=== PATIENT | female | born 1995 | race Caucasian/White ===

== ENCOUNTER → 2018-08-01 | Outpatient (REF) | payer BC | LOC: M LAB LCGH 13:20 | PROVIDERS: ATTEND Nurse Practitioner Adult Health | DX: Z12.4 Encounter for screening for malignant neoplasm of cervix (principal) ==

== ENCOUNTER 2020-07-22 10:30 | Inpatient (IN) | payer BC, OTHER ==
[~2020-07-22] VITALS: Ht 170.2 cm; Wt 82.7 kg
[2020-07-22] VITALS (25 sets, daily range): BP systolic 101–132; BP diastolic 56–79
[2020-07-22] MEDS ORDERED: PRENTAB9 PO (10:48)
[2020-07-22 12:21] LABS: HEMATOCRIT 35.6 % (36.0-47.0); HEMOGLOBIN 11.8 g/dl (12.0-15.5); MEAN CORPUSCULAR HEMOGLOBIN 30.4 pg (27.0-33.0); MEAN CORPUSCULAR HGB CONC 33.1 g/dl (32.0-36.5); MEAN CORPUSCULAR VOLUME 91.8 fl (80.0-96.0); PLATELET COUNT, AUTOMATED 170 10^3/uL (150-450); RED BLOOD COUNT 3.88 10^6/uL (4.00-5.40)
--- NOTE | 2020-07-22 13:49 | HPEPDOC ---
Obstetrical History & Physical General Date of Admission Jul 22, 2020 at 10:30 History of Present Illness 25yo at 34+0wks presented to [facility] for PPROM of clear fluid at 0650 this AM. She has a cerclage in place due to ultrasound- indicated cerclage placement on anatomy scan. She reports spouse is currently deployed to [facility] so she relocated from [place], [place] to [facility] to be with family for support a month ago establishing care with [facility] provider. Upon PPROM, patient required transfer to [facility] for NICU care. She denies VB, DFM, or regular ctx's. Chief Complaint: LOF, pre-term Information Provided By: Patient Care Care: Good Care Dating Final EDC: Sep 02, 2020 Final EDC for Daily Update: Sep 02, 2020 EGA at Admission: 34 Antepartum Course Diagnos(e)s Cervical incompetence - cerclage placed on Asthma complicating Varicella equivocal Carrier of Lenin Caballero Height (inches): 67 Pre- weight (lbs.): 146 Admission Weight (lbs.): 182 Change in Weight (lbs.): 36 Past Medical History Past Obstetrical History : Past Obstetrical History: Multigravida LAUNDRY SORTER History: Spontaneous Past Medical History Medical History Asthma Varicella NI Surgical History: Other (Cerclage placement ) Family History Significant Family History: No pertinent family hx Social History Marital Status: Family situation: Spouse/partner deployed Psychosocial History: No pertinent psych hx * Smoker: non-smoker Alcohol: Denies Drugs: denies Abuse Violence Screening Have you been hit/kicked/slapp: No Have you been sexually assault: No Allergies Coded Allergies: peach (Verified Allergy, Severe, ANAPHYLAXIS, 07/22/20) Medications Scheduled No.137/Iron/Folic Acd ( Vitamin Tablet) 1 Each Tablet, 1 TAB PO DAILY Physical Examination Physical Examination GENERAL: Alert and oriented times three. ABDOMEN: Gravid and non-tender to touch. FETUS: Is vertex (VTX) by sterile vaginal examination (SVE), fetus is vertex (VTX) by Sumit and TAUS CARDS: well-perfused LUNGS: no exaggerated respiratory effort appreciated : NEFG, +pooling, cerclage in place, cerclage removed per patient request with SVE /-3 EXTREMITIES: No edema. TAUS: cephalic presentation, anterior placenta Laboratory Data 24H LABS Laboratory Tests 2 07/22/20 11:59: Nucleated Red Blood Cells % (auto) 0.0 CBC/BMP Laboratory Tests 07/22/20 11:59 Pertinent Laboratoy Data Blood Type: B+ RBC Antibody Screen: Negative HIV: Negative Hepatitis B: Negative Rapid Plasma Reagin: Nonreactive Rubella: Immune Varicella: Nonreactive Chlamydia/Gonorrhea: Negative Group B Streptococcus: Positive Glucose Tolerance Test: 99 Anatomy Ultrasound Placenta Location: Anterior Normal Anatomy: Yes Vaginal Examination Dilation: 1cm Effacement: 50% Station: -3 Cervical Consistency: Soft Cervical Position: Posterior Presentation: Cephalic presentation Assessment Heart Rate (FHR): 140 Variability: Moderate Accelerations: Positive Decelerations: None Tocometer Contractions: No Multi-drug resistant Organism: No history of MDRO Assessment/Plan Assessment Danya is a 25yo at 34+0wks presenting as transfer of care for NICU status after PPROM. GBS positive. Normotensive, afebrile, NST reactive. Patient had already received BTMZ on 07/15 and 07/16 for concern of spotting VB last week. Plan Admit and orient. Jazz Musician and consent. Diet: regular as tolerated Group B Streptococcus (GBS) positive Labs and intravenous (IV) per unit protocol. Counseled on pitocin, cytotec, and guerra bulb for induction of labor (IOL). Lactated Ringers (LR): Bolus 1000 mL, then at 125 mL/hr. Anticipate . C-S as appropriate. Labor and Delivery Counseling Patient was counseled on mgmt options of expectant until 36wks with latency antibiotics vs IOL now that she is 34wks. We discussed r/b/a/i of expectant vs IOL. Patient elected for cerclage removal and to proceed with IOL today. Patient counseled on the r/b/a/i of vaginal delivery with possible need for blood products, she acknowledged understanding. We also discussed requiring NICU care for prematurity, plan for NICU consult. JEREMY OCHOA DO Jul 22, 2020 13:49
--- NOTE | 2020-07-22 14:05 | IPNPDOC ---
Text Note Date of Service The patient was seen on 07/22/20. NOTE Patient was allowed to eat after cerclage removal. Patient counseled that there is small amount of scarring from the cerclage. Discussed IOL options to include cytotec, guerra balloon, and pitocin. Discussed that I recommend guerra balloon with low dose pitocin for cervical ripening while attempting to break up scar tissue. Patient amenable to this plan. Guerra balloon placed without difficulty with 60ml intrauterine bulb and tension applied by taping to inner thigh. Will start low dose pitocin protocol and PCN for GBS ppx at this time. Patient declines need for pain medication at this time. FHRT cat I. Patient desires to proceed, safe to continue. All questions answered. VS,Darcy, I+O VS, Darcy, I+O Laboratory Tests 07/22/20 11:59 JEREMY OCHOA DO Jul 22, 2020 14:05
[2020-07-22] MEDS ORDERED: PROMETHAZINE INJ 25 MG/ML VIAL (J2550) IV PRN (16:30)
[2020-07-23] VITALS (62 sets, daily range): BP systolic 81–223; BP diastolic 49–90
[2020-07-23] MEDS: BUTORPHANOL 2 MG/ML INJ (J0595) IV PRN ×2 (00:29→04:50)
--- NOTE | 2020-07-23 01:03 | IPNPDOC ---
Text Note Date of Service The patient was seen on 07/23/20. NOTE Presented to room for assessment of progress. Danya reports increased pain and desires IV medication. Chaperoned by RN Curiel bulb removed with gentle traction. Cervix: /-2. FHR Cat I. Pitocin at 6mU. Will now increase per protocol. Stadol and phenergan written for pain. Continue PCN for GBS prophylaxis. Patient candidate for epidural if desired. All questions answered. Darcy Mclain, I+O VSDarcy I+O Laboratory Tests 07/22/20 11:59 Vital Signs Date Time Temp Pulse Resp B/P (MAP) Pulse Ox O2 Delivery O2 Flow Rate FiO2 07/23/20 00:29 98 132/60 (84) 07/23/20 00:29 18 Room Air 07/23/20 00:11 97.9 07/22/20 19:12 97 I&O- Last 24 Hours up to 6 AM 07/23/20 06:00 Intake Total 3079 ml Output Total 2100 ml Balance 979 ml CADEN BAUGH DO Jul 23, 2020 01:03
--- NOTE | 2020-07-23 10:18 | IPNPDOC ---
Obstetrical Progress Note Date of Service Jul 23, 2020 Subjective Pt sitting on the bedside, moving and breathing with contractions. Objective Vital Signs Date Time Temp Pulse Resp B/P (MAP) Pulse Ox O2 Delivery O2 Flow Rate FiO2 07/23/20 09:25 104 18 124/75 (91) 07/23/20 08:54 97.4 07/23/20 00:29 Room Air 07/22/20 19:12 97 Assessment Heart Rate (FHR): 140 Variability: Moderate Accelerations: Positive Decelerations: None Heart Rate Tracing: Category I Tocometer Contractions: Yes Frequency: regular, every 2-2 min. Duration: greater than 60 seconds Strength: palpated as moderate, resting tone palp/soft Assessment and Plan Age: 25 : 2 Term: 0 Pre-term: 0 Abortions: 1 Livin EGA at Admission: 34 (+1) Status: Reassuring Anticipate: Vaginal Delivery Additional Comments Pt coached on breathing and relaxation exercises. Discussed plan of care, movement and options for comfort if desired with expressed understanding. Lr@125ml/hr, continue pitocin induction and titrate per protocol, continue GBS prophylaxis, Continuous EFM x2, monitor for change in or maternal status, evaluate for change as indicated, anticipate vaginal delivery. ANAHI ELIAS CNM Jul 23, 2020 10:18
--- NOTE | 2020-07-23 11:14 | IPNPDOC ---
Obstetrical Progress Note Date of Service Jul 23, 2020 Subjective Pt states feeling tired and increased pressure with contractions. Objective Vital Signs Date Time Temp Pulse Resp B/P (MAP) Pulse Ox O2 Delivery O2 Flow Rate FiO2 07/23/20 09:25 104 18 124/75 (91) 07/23/20 08:54 97.4 07/23/20 00:29 Room Air 07/22/20 19:12 97 Assessment Heart Rate (FHR): 120 Variability: Moderate Accelerations: Positive Decelerations: None Heart Rate Tracing: Category I Tocometer Contractions: Yes Frequency: every 2-5 min. (on 18mu Pitocin) Duration: greater than 60 seconds Strength: palpated as mild Sterile Vaginal Examination Dilation: 6 cm (-7) Effacement (%): 80% Station: -1 Cervical Consistency: Soft (with scar tissue palpated and massaged at left anterior) Cervical Position: Middle Postion/Presentation: Cephalic presentation Assessment and Plan Age: 25 : 2 Term: 0 Pre-term: 0 Abortions: 1 Livin EGA at Admission: 34 (+1) Status: Reassuring Group B Streptococcus: Positive Anticipate: Vaginal Delivery Additional Comments continue lr @125ml/hr, continue to titrate pitocin induction per protocol, monitor for change in or maternal status, evaluate for change as indicated, may have epidural if desired, anticipate vaginal delivery. ANAHI ELIAS CNM Jul 23, 2020 11:14
[2020-07-23] MEDS ORDERED: FENTANYL 2MCG/ML ROPIVACAINE 0.2% IN 0.9% NACL 100ML IVBAG As Ordered ONE (13:18)
[2020-07-23] MEDS ORDERED: ONDANSETRON 4MG/2ML VIAL IV PRN (13:25)
[2020-07-23] MEDS ORDERED: LACTATED RINGER'S 1000 ML IV PRN (13:25)
[2020-07-23] MEDS ORDERED: EPIDURAL COMMENT XX SCH (13:25)
[2020-07-23] MEDS ORDERED: diphenhydrAMINE 50MG/ML VIAL (J1200) IV PRN (13:25)
[2020-07-23] MEDS ORDERED: NALOXONE INJ 0.4MG/1ML VIAL (J2310 PER 1MG) IV PRN (13:25)
[2020-07-23] MEDS ORDERED: EPIDURAL/PCA KEYS XX PRN (13:25)
[2020-07-23] MEDS ORDERED: REFRIGERATOR IV KEYS XX PRN (13:25)
[2020-07-23] MEDS ORDERED: FENTANYL/ROPIVACAINE/NACL BAG 100 ML EPIDURAL SCH (13:25)
[2020-07-23] MEDS: ePHEDrine SULFATE 25 MG/5 ML(5MG/ML) SYRINGE IV PRN ×2 (15:24→15:34)
[2020-07-23 21:59] LABS: CORD GAS ABE A -5.2; CORD GAS ABE V -3.7; CORD GAS HCO3 V 23.8 MEQ/L; CORD GAS O2 SAT A 53.3 %; CORD GAS O2 SAT V 58.4 %; CORD GAS PCO2 A 61.4 mmHg; CORD GAS PCO2 V 52.4 mmHg; CORD GAS PH A 7.209 UNITS; CORD GAS PH V 7.276 UNITS; CORD GAS PO2 A 24.3 mmHg; CORD GAS PO2 V 24.3 mmHg; CORD GAS SBC A 19.2 MEQ/L; CORD GAS SBC V 20.5 MEQ/L; CORD GAS TCO2 A 25.8 MEQ/L; CORD GAS TCO2 V 25.5 MEQ/L
[2020-07-23] MEDS ORDERED: RHOGAM 300 MCG (1500 IU) INJ (J2790) IM SCH (22:05)
[2020-07-23] MEDS ORDERED: MEASLES,MUMPS,RUBELLA VACCINE INJ (MMR-II) (90707) SC SCH (22:05)
[2020-07-23] MEDS ORDERED: ACETAMINOPHEN TAB 650MG DOSE (2X325MG) PO PRN (22:05)
[2020-07-23] MEDS ORDERED: OXYTOCIN DRIP 30 UNITS in IV 1 EA IV SCH (22:05)
[2020-07-23] MEDS ORDERED: METHYLERGONOVINE MALEATE 0.2 MG TAB PO PRN (22:05)
[2020-07-23] MEDS ORDERED: DIBUCAINE 1% OINTMENT 30GM TOP PRN (22:05)
[2020-07-23] MEDS ORDERED: DOCUSATE SODIUM 100MG CAPSULE PO PRN (22:05)
--- NOTE | 2020-07-23 22:40 | DNPDOC ---
[facility] Delivery Note Delivery Note DATE OF DELIVERY: 23Jul2020 PREDELIVERY DIAGNOSIS: 34-1/7 weeks' gestation and premature rupture of membranes. POST DELIVERY DIAGNOSIS: Delivered. PROCEDURE: Spontaneous vaginal delivery. TANNING WHEEL OPERATOR: Vinita Elias ANESTHESIA: epidural. ESTIMATED BLOOD LOSS: 450 mL. FINDINGS: 4 pound 11 ounce male , Score 7/9, shoulder and right ankle cord. DELIVERY SUMMARY: Patient is a 25-year-old 2 now para 0-1-1-1 who was admitted to labor and delivery for PPROM. Pt progressed to complete and made brisk progress with pushing efforts to over an intact perineum. The head delivered in OA with restitution SHARON. The left shoulder delivered easily followed by the posterior shoulder and corpus. A shoulder cord and left ankle cord were noted and reduced, and the male infant placed immediately skin to skin on the maternal abdomen where he was dried and stimulated to cry. The cord was clamped x2 after one minute and the infant transferred to the waiting NICU team for additional evaluation. Cord gasses were collected and sent. Pitocin infusion was intiated per protocol. The placenta delivered spontaneously intact in Carrero presentation with moderate bleeding. The fundus was massaged until firm and the cervix swept for a small clot. A hemostatic right labial abrasion and a left labial laceration were noted on exam. The left labial laceration was reapproximated using a running stich with 4-0 vicryl on sh. The cervix was swept for an additional clot and bleeding appropriately slowed. Mother entered the recovery phase in stable condition. VINITA ELIAS CNM Jul 23, 2020 22:40
[2020-07-24 00:50] VITALS: BP 109/61
[2020-07-24 06:00] VITALS: BP 102/57
--- NOTE | 2020-07-24 08:48 | IPNPDOC ---
Progress Note Date of Service: Jul 24, 2020 Day#: 1 Progress Note SUBJECT: Danya is a 25-year-old 2 now Para 0-1-1-1 status post spo ntaneous vaginal delivery at 34-2/7 weeks' at approximately [id number] of a male 4 pounds 11 ounces with left labial laceration and repair, doing well day # 1. She has been ambulating to the NICU without difficulty, voiding spontaneously without issue and tolerating regular diet. Pumping milk without issue. Reports lochia is like a normal period. Patient is ambulating well. Reports some cramping with pumping. Denies any pain. Voiding and passing gas without difficulty. OBJECTIVE: VITAL SIGNS: Within normal limits, afebrile. Alert and oriented times three. Breath sounds clear to auscultation. Heart rate: Regular rate and rhythm, no murmurs, rubs or gallops. Abdomen: Fundus firm at U-2. Soft, NTTP. Small lochia. ASSESSMENT: Danya is a 25-year-old 2 now Para 0-1-1-1 status post spontaneous vaginal delivery after presenting with premature rupture of membranes (PPROM), delivered at 34-2/7 weeks', doing well on day 1. Vitals within normal limits, afebrile, hemodynamically stable with no evidence of infection. PLAN: 1. Continue supportive care 2. provide new parent education 3. Encourage expression of breast milk and ambulation. 4. anticipate discharge to boarding status on day 2 VS, I&O, 24H, Darcy Vital Signs/I&O Vital Signs Date Time Temp Pulse Resp B/P (MAP) Pulse Ox O2 Delivery O2 Flow Rate FiO2 07/24/20 06:00 97.5 96 18 102/57 (72) 07/24/20 00:50 99 Room Air l I&O- Last 24 Hours up to 6 AM 07/24/20 06:00 Intake Total 4986 ml Output Total 3650 ml Balance 1336 ml Laboratory Data 24H LABS Laboratory Tests 2 07/23/20 21:37: Cord Arterial Blood pH 7.209, Cord Arterial Blood PCO2 61.4, Cord Arterial Blood PO2 24.3, Cord Arterial Blood HCO3 24.0, Cord Arterial Blood Total CO2 25.8, Cord Arterial Blood Base Excess -5.2, Cord Arterial Base Excess (Standard 19.2, Cord Arterial Bld Oxygen Saturation 53.3, Cord Venous Blood pH 7.276, Cord Venous Blood PCO2 52.4, Cord Venous Blood PO2 24.3, Cord Venous Blood HCO3 23.8, Cord Venous Blood Total CO2 25.5, Cord Venous Base Excess (Actual) -3.7, Cord Venous Base Excess (Standard) 20.5, Cord Venous Blood Oxygen Saturation 58.4 07/23/20 22:40: Serology Scanned Report Hepatitis B Testing ANAHI ELIAS CNM Jul 24, 2020 08:48
[2020-07-24] MEDS ORDERED: PRENATAL VITAMINS CHEWABLE TABLET PO SCH (09:00)
[2020-07-24] MEDS: IBUPROFEN 800 MG TAB PO PRN ×2 (09:13→20:46)
[2020-07-24] MEDS ORDERED: SLF 3 ML SYR IV PRN (12:15)
[2020-07-24] MEDS ORDERED: SLF 3 ML SYR IV SCH (14:00)
[2020-07-24 18:00] VITALS: BP 119/69
--- NOTE | 2020-07-25 04:39 | IPNPDOC ---
Progress Note Date of Service: Jul 25, 2020 Day#: 2 Progress Note SUBJECT: Danya is a 25-year-old 2 now Para 0-1-1-1 status post spo ntaneous vaginal delivery at 34-2/7 weeks' at approximately [id number] of a male 4 pounds 11 ounces with left labial laceration and repair, doing well day # 2. She has been ambulating to the NICU without difficulty, voiding spontaneously without issue and tolerating regular diet. Pumping milk without issue. Reports lochia is like a normal period. Patient is ambulating well. Reports some cramping with pumping. Denies any pain. Voiding and passing gas without difficulty. OBJECTIVE: VITAL SIGNS: Within normal limits, afebrile. Alert and oriented times three. Breath sounds clear to auscultation. Heart rate: Regular rate and rhythm, no murmurs, rubs or gallops. Abdomen: Fundus firm at U-2. Soft, NTTP. Small lochia. ASSESSMENT: Danya is a 25-year-old 2 now Para 0-1-1-1 status post spontaneous vaginal delivery after presenting with premature rupture of membranes (PPROM), delivered at 34-2/7 weeks', doing well on day 2. Vitals within normal limits, afebrile, hemodynamically stable with no evidence of infection. PLAN: 1. Continue supportive care 2. provide new parent education 3. Encourage expression of breast milk and ambulation. 4. discharge to boarding 5. plans on condoms for contraception VS, I&O, 24H, Fishbone Vital Signs/I&O Vital Signs Date Time Temp Pulse Resp B/P (MAP) Pulse Ox O2 Delivery O2 Flow Rate FiO2 07/24/20 18:00 97.8 113 16 119/69 (86) 94 Room Air LETICIA HERNANDEZ DO Jul 25, 2020 04:39
--- NOTE | 2020-07-25 04:41 | OBDS ---
[facility] Obstetrical Discharge Sum. A/P, Post Course List any complications Danya is a 25-year-old 2 now Para 0-1-1-1 status post spontaneous vaginal delivery at 34-2/7 weeks' on 23Jul2020 of a male 4 pounds 11 ounces with left labial laceration and repair. On discharge she was ambulating to the NICU without difficulty, voiding spontaneously without issue and tolerating regular diet. She was pumping milk without issue. he reported her lochia is like a normal period. Patient is ambulating well. She reported some cramping with pumping and denied any pain. She was voiding and passing gas without difficulty. Her vital signs were normal and she had no evidence of infection. She plans on condoms for contraception. She was educated on routine return precautions and activity limitations (pelvic rest). LETICIA HERNANDEZ DO Jul 25, 2020 04:41
[2020-07-25 06:00] VITALS: BP 104/60
[2020-07-25] MEDS: IBUPROFEN 800 MG TAB PO PRN (12:31)
== END 2020-07-25 16:30 | disposition home or self-care (01) | DRG 805 ==
LOC: M LDI 10:30 → M OBS 07-24 00:45
PROVIDERS: ATTEND Registered Nurse
PROC: 3E033VJ Introduction of Other Hormone into Peripheral Vein, Percutaneous Approach (ICD-10-PCS; 2020-07-22)
PROC: 10E0XZZ Delivery of Products of Conception, External Approach (ICD-10-PCS; principal; 2020-07-23)
PROC: 0HQ9XZZ Repair Perineum Skin, External Approach (ICD-10-PCS; 2020-07-23)
DX: O42.013 Preterm premature rupture of membranes, onset of labor within 24 hours of rupture, third trimester (principal); Z37.0 Single live birth; O34.33 Maternal care for cervical incompetence, third trimester; Z3A.34 34 weeks gestation of pregnancy; O99.824 Streptococcus B carrier state complicating childbirth; O99.52 Diseases of the respiratory system complicating childbirth; J45.909 Unspecified asthma, uncomplicated; O69.82X0 Labor and delivery complicated by other cord entanglement, without compression, not applicable or unspecified; O70.0 First degree perineal laceration during delivery

== ENCOUNTER → 2020-09-10 | Outpatient (REF) | payer OTHER ==
[~2020-09-10] MED LIST: PRENTAB9 PO
[2020-09-10 12:07] LABS: APPEARANCE, URINE CLEAR (CLEAR); BACTERIA, URINE AUTO 1+ (NEGATIVE); BILIRUBIN, URINE AUTO NEGATIVE (NEGATIVE); BLOOD, URINE BLOOD NEGATIVE (NEGATIVE); COLOR, URINE STRAW (YELLOW); GLUCOSE, URINE (UA) AUTO NEGATIVE (NEGATIVE); KETONE, URINE AUTO TRACE mg/dL (NEGATIVE); LEUKOCYTE ESTERASE, URINE AUTO NEGATIVE (NEGATIVE); NITRITE, URINE AUTO NEGATIVE (NEGATIVE); PROTEIN, URINE AUTO NEGATIVE (NEGATIVE); RBC, URINE AUTO 0 /HPF (0-3); SPECIFIC GRAVITY URINE AUTO 1.006 (1.002-1.035); SQUAMOUS EPITHELIAL CELL UR AU 3 /HPF (0-6); UROBILINOGEN, URINE AUTO 0.2 mg/dL (0.0-2.0); WBC, URINE AUTO 1 /HPF (0-3)
== END ==
LOC: M LAB REF 11:47
PROVIDERS: ATTEND Nurse Practitioner Women's Health
DX: N39.9 Disorder of urinary system, unspecified (principal)

== ENCOUNTER → 2023-08-12 | Outpatient (REF) | payer OTHER ==
[2023-08-12 17:53] LABS: APPEARANCE, URINE CLEAR (CLEAR); BACTERIA, URINE AUTO NEGATIVE (NEGATIVE); BILIRUBIN, URINE AUTO NEGATIVE (NEGATIVE); BLOOD, URINE BLOOD NEGATIVE (NEGATIVE); COLOR, URINE STRAW (YELLOW); GLUCOSE, URINE (UA) AUTO NEGATIVE (NEGATIVE); KETONE, URINE AUTO NEGATIVE (NEGATIVE); LEUKOCYTE ESTERASE, URINE AUTO NEGATIVE (NEGATIVE); NITRITE, URINE AUTO NEGATIVE (NEGATIVE); PROTEIN, URINE AUTO NEGATIVE (NEGATIVE); RBC, URINE AUTO 0 /HPF (0-3); SPECIFIC GRAVITY URINE AUTO 1.003 (1.002-1.035); SQUAMOUS EPITHELIAL CELL UR AU 0 /HPF (0-6); UROBILINOGEN, URINE AUTO 0.2 mg/dL (0.0-2.0); WBC, URINE AUTO 0 /HPF (0-3)
== END ==
LOC: M SMT 17:00
PROVIDERS: ATTEND Nurse Practitioner Family
DX: R10.9 Unspecified abdominal pain (principal)

== ENCOUNTER → 2023-09-07 | Outpatient (CLI) | payer OTHER ==
[~2023-09-07] MED LIST changes: +FUROSEMIDE 20MG/2ML VIAL As Ordered ONE
== END ==
LOC: M RAD 07:13
PROVIDERS: ATTEND Nurse Practitioner Family
DX: N13.30 Unspecified hydronephrosis (principal)
CPT/HCPCS: 78708; A9562; J1940

== ENCOUNTER 2023-09-28 10:05 | Day surgery (SDC) | payer OTHER ==
[~2023-09-28] VITALS: Ht 170.2 cm; Wt 77.5 kg
[~2023-09-28 10:05] MED LIST changes: -FUROSEMIDE 20MG/2ML VIAL As Ordered ONE; +LIDOCAINE 2% 100MG/5ML SDV (FOR ANES.) As Ordered ONE; +MIDAZOLAM INJ 2MG/2ML VIAL As Ordered ONE; +ONDANSETRON 4MG 2ML VIAL As Ordered ONE; +fentaNYL 100 MCG/2 ML INJECTION As Ordered ONE; +propofoL 200 MG/20 ML VIAL As Ordered ONE
[2023-09-28] MEDS ORDERED: LR 1,000 ML IV SCH ×2 (10:55→13:10)
[2023-09-28] MEDS ORDERED: LACRILUBE (AKWA TEARS) OPHTH OINT 3.5GM As Ordered ONE (12:11)
[2023-09-28] MEDS: ceFAZolin SOD 2 GM in IV 1 EA IV ONE (12:15)
[2023-09-28] MEDS ORDERED: ACETAMINOPHEN 1000MG 100ML IV BAG As Ordered ONE (12:18)
[2023-09-28] MEDS: ISOVUE-300 61% 100ML VIAL As Ordered ONE (12:39)
[2023-09-28] MEDS ORDERED: oxyCODONE 5MG TAB PO PRN (13:10)
[2023-09-28] MEDS ORDERED: fentaNYL 100 MCG/2 ML INJECTION IV PRN (13:10)
[2023-09-28] MEDS ORDERED: ONDANSETRON 4MG 2ML VIAL IV PRN (13:10)
[2023-09-28] MEDS ORDERED: METOCLOPRAMIDE INJ 10MG/2ML VIAL IV PRN (13:10)
[2023-09-28] MEDS ORDERED: HYDROMORPHONE HCL 0.5 MG/ 0.5 ML SYRINGE IV PRN (13:10)
[2023-09-28] MEDS ORDERED: PERCOCET 5MG/325MG TAB PO PRN (13:30)
[2023-09-28] MEDS ORDERED: OXYB5TAB14 PO (13:34)
[2023-09-28] MEDS: oxyBUTYnin 5 MG TAB PO PRN (14:07)
[2023-09-28 14:30] VITALS: BP 114/73; TEMP 98; O2SAT 98
== END 2023-09-28 14:52 | disposition home or self-care (01) ==
LOC: M SDC 10:05
PROVIDERS: ATTEND Urology
DX: N13.2 Hydronephrosis with renal and ureteral calculous obstruction (principal); J45.909 Unspecified asthma, uncomplicated; Z91.018 Allergy to other foods
CPT/HCPCS: 52356; 76000; 81025; 82365; C1769; C1894; C2617; J0131; J0690; J1100; J2250; J2405; J3010; Q9967

== ENCOUNTER → 2024-01-10 | Outpatient (CLI) | payer OTHER ==
[~2024-01-10] MED LIST changes: -LIDOCAINE 2% 100MG/5ML SDV (FOR ANES.) As Ordered ONE; -MIDAZOLAM INJ 2MG/2ML VIAL As Ordered ONE; -ONDANSETRON 4MG 2ML VIAL As Ordered ONE; +OXYB5TAB14 PO; -fentaNYL 100 MCG/2 ML INJECTION As Ordered ONE; -propofoL 200 MG/20 ML VIAL As Ordered ONE
[2024-01-10 16:49] LABS: HEMATOCRIT 44.5 % (36.0-47.0); HEMOGLOBIN 14.7 g/dl (12.0-15.5); MEAN CORPUSCULAR HEMOGLOBIN 28.9 pg (27.0-33.0); MEAN CORPUSCULAR VOLUME 87.4 fl (80.0-96.0); PLATELET COUNT, AUTOMATED 212 10^3/uL (150-450); RED BLOOD COUNT 5.09 10^6/uL (4.00-5.40); WHITE BLOOD COUNT 6.3 10^3/uL (4.0-10.0)
[2024-01-10 17:02] LABS: BLOOD UREA NITROGEN 8 MG/DL (9-23); CALCIUM LEVEL 9.3 MG/DL (8.5-10.1); CARBON DIOXIDE LEVEL 30 MMOL/L (20-31); CHLORIDE LEVEL 106 MMOL/L (98-107); GLOMERULAR FILTRATION RATE > 60.0 (>60); GLUCOSE, FASTING 73 MG/DL (60-100); POTASSIUM SERUM 4.2 MMOL/L (3.5-5.1); SODIUM LEVEL 139 MMOL/L (136-145)
[2024-01-10 17:13] LABS: INR 0.97; PARTIAL THROMBOPLASTIN TIME 26.6 SECONDS (24.8-34.2); PROTHROMBIN TIME 12.6 SECONDS (12.5-14.5)
== END ==
LOC: M PLALAB 15:15
PROVIDERS: ATTEND Urology
DX: N13.5 Crossing vessel and stricture of ureter without hydronephrosis (principal)

== ENCOUNTER → 2024-01-10 | Outpatient (REF) | payer OTHER | LOC: M SMT 17:15 | PROVIDERS: ATTEND Urology | DX: Z01.818 Encounter for other preprocedural examination (principal); N13.5 Crossing vessel and stricture of ureter without hydronephrosis; N39.0 Urinary tract infection, site not specified ==

== ENCOUNTER 2024-01-19 12:35 | Day surgery (SDC) | payer OTHER ==
[~2024-01-19] VITALS: Ht 167.6 cm; Wt 73.4 kg
[2024-01-19] MEDS: NS 1,000 ML IV SCH (13:30)
[2024-01-19] MEDS ORDERED: PERCOCET 5MG/325MG TAB PO PRN (13:30)
[2024-01-19] MEDS ORDERED: ONDANSETRON 4MG 2ML VIAL IV PRN (13:30)
[2024-01-19] MEDS ORDERED: ACETAMINOPHEN 325 MG TAB PO PRN (13:30)
[2024-01-19] MEDS: METHYLENE BLUE 0.5% (5MG/ML) 10 ML AMP (PROVAYBLUE) As Ordered ONE (15:01)
[2024-01-19] MEDS: ceFAZolin SOD 2 GM in IV 1 EA IV ONE (15:34)
[2024-01-19] MEDS ORDERED: KETOROLAC 60MG 2ML VIAL As Ordered ONE (15:54)
[2024-01-19] MEDS ORDERED: propofoL 200 MG/20 ML VIAL As Ordered ONE (15:54)
[2024-01-19] MEDS ORDERED: ONDANSETRON 4MG 2ML VIAL As Ordered ONE (15:54)
[2024-01-19] MEDS ORDERED: MIDAZOLAM INJ 2MG/2ML VIAL As Ordered ONE (15:54)
[2024-01-19] MEDS ORDERED: fentaNYL 100 MCG/2 ML INJECTION As Ordered ONE (15:54)
[2024-01-19] MEDS ORDERED: LIDOCAINE 2% 100MG/5ML SDV (FOR ANES.) As Ordered ONE (15:54)
[2024-01-19] MEDS ORDERED: ACETAMINOPHEN 1000MG 100ML IV BAG As Ordered ONE (15:54)
[2024-01-19] MEDS ORDERED: SUGAMMADEX SODIUM 500 MG/5 ML VIAL (BRIDION) As Ordered ONE (15:54)
[2024-01-19] MEDS ORDERED: ROCURONIUM BROMIDE 50MG/5ML VIAL As Ordered ONE (15:54)
[2024-01-19] MEDS ORDERED: HYDROmorphone HCL 2MG/ML 1ML VIAL As Ordered ONE (16:15)
[2024-01-19] MEDS ORDERED: fentaNYL 100 MCG/2 ML INJECTION IV PRN (18:45)
[2024-01-19] MEDS: LIDOCAINE 1% SDV 30ML VIAL As Ordered ONE (18:47)
[2024-01-19] MEDS: ONDANSETRON 4MG 2ML VIAL IV PRN (19:33)
[2024-01-19] MEDS: oxyBUTYnin 5 MG TAB PO PRN (19:49)
[2024-01-19] MEDS: LR 1,000 ML IV SCH (19:49)
[2024-01-19] MEDS: METOCLOPRAMIDE INJ 10MG/2ML VIAL IV STA (19:49)
[2024-01-19] MEDS: oxyCODONE 5MG TAB PO PRN (19:50)
[2024-01-19] MEDS ORDERED: PROMETHAZINE 25MG/ML 1ML VIAL IV PRN (19:55)
[2024-01-19 20:40] VITALS: BP 134/81; TEMP 98.1; O2SAT 94
[2024-01-19 20:48] LABS: HEMATOCRIT 42.1 % (36.0-47.0); HEMOGLOBIN 14.1 g/dl (12.0-15.5); MEAN CORPUSCULAR HEMOGLOBIN 29.2 pg (27.0-33.0); MEAN CORPUSCULAR HGB CONC 33.5 g/dl (32.0-36.5); MEAN CORPUSCULAR VOLUME 87.2 fl (80.0-96.0); PLATELET COUNT, AUTOMATED 125 10^3/uL (150-450); RED BLOOD COUNT 4.83 10^6/uL (4.00-5.40); WHITE BLOOD COUNT 9.1 10^3/uL (4.0-10.0)
[2024-01-19] MEDS: DOCUSATE SODIUM 100MG CAPSULE PO SCH (21:00)
[2024-01-19 21:05] LABS: BLOOD UREA NITROGEN 13 MG/DL (9-23); CALCIUM LEVEL 8.8 MG/DL (8.5-10.1); CARBON DIOXIDE LEVEL 24 MMOL/L (20-31); CHLORIDE LEVEL 106 MMOL/L (98-107); CREATININE FOR GFR 0.72 MG/DL (0.55-1.30); GLOMERULAR FILTRATION RATE > 60.0 (>60); GLUCOSE, FASTING 151 MG/DL (60-100); SODIUM LEVEL 138 MMOL/L (136-145)
[2024-01-19] MEDS: ceFAZolin SOD 1 GM in DEXTROSE 5% (D5W) ADV/MINI-BAG 50 ML IV SCH (21:05)
[2024-01-19 21:10] VITALS: BP 123/66; TEMP 97.7; O2SAT 97
[2024-01-19 21:40] VITALS: BP 123/66; TEMP 97.1; O2SAT 95
[2024-01-19 22:40] VITALS: BP 120/64; TEMP 97.9; O2SAT 97
[2024-01-19 23:40] VITALS: BP 117/62; TEMP 97.7; O2SAT 95
[2024-01-20 00:50] VITALS: BP 117/64; TEMP 97.6; O2SAT 96
[2024-01-20 02:00] VITALS: BP 118/64; TEMP 97.7; O2SAT 97
[2024-01-20] MEDS: PERCOCET 5MG/325MG TAB PO PRN (04:37)
[2024-01-20 04:50] VITALS: BP 134/80; TEMP 97.7; O2SAT 99
[2024-01-20 07:33] LABS: HEMATOCRIT 39.9 % (36.0-47.0); HEMOGLOBIN 13.3 g/dl (12.0-15.5); MEAN CORPUSCULAR HEMOGLOBIN 29.1 pg (27.0-33.0); MEAN CORPUSCULAR HGB CONC 33.3 g/dl (32.0-36.5); MEAN CORPUSCULAR VOLUME 87.3 fl (80.0-96.0); PLATELET COUNT, AUTOMATED 157 10^3/uL (150-450); RED BLOOD COUNT 4.57 10^6/uL (4.00-5.40); WHITE BLOOD COUNT 8.3 10^3/uL (4.0-10.0)
[2024-01-20 08:01] LABS: BLOOD UREA NITROGEN 8 MG/DL (9-23); CALCIUM LEVEL 8.4 MG/DL (8.5-10.1); CARBON DIOXIDE LEVEL 24 MMOL/L (20-31); CHLORIDE LEVEL 108 MMOL/L (98-107); GLOMERULAR FILTRATION RATE > 60.0 (>60); GLUCOSE, FASTING 100 MG/DL (60-100); POTASSIUM SERUM 3.9 MMOL/L (3.5-5.1); SODIUM LEVEL 138 MMOL/L (136-145)
[2024-01-20 08:30] VITALS: BP 137/84; TEMP 97.9; O2SAT 97
[2024-01-20] MEDS ORDERED: OXYB5TAB14 PO (09:27)
[2024-01-20] MEDS ORDERED: PERCOCET PO (09:27)
[2024-01-20] MEDS ORDERED: COLA100C5 PO (09:27)
== END 2024-01-20 11:30 | disposition home or self-care (01) ==
LOC: M SDC 12:35 → UNDOADMIN 13:30 → M RR INP 13:30 → M MS5PR 20:34 → M RR INP 20:34 → M MS5PR 20:34 → UNDODISIN 01-20 11:30 → M SDC 01-20 11:30
PROVIDERS: ATTEND Urology
DX: N13.0 Hydronephrosis with ureteropelvic junction obstruction (principal); N28.9 Disorder of kidney and ureter, unspecified; Z91.018 Allergy to other foods
CPT/HCPCS: 36415; 50544; 74018; 80048; 81025; 85027; 86850; 96365; 96366; C1769; C2617; J0131; J0665; J0690; J1100; J1171; J1885; J2250; J2405; J2765; J3010; S2900

== ENCOUNTER → 2024-02-20 | Outpatient (REF) | payer OTHER ==
[~2024-02-20] MED LIST changes: +COLA100C5 PO; +PERCOCET PO
[2024-02-20 14:50] LABS: APPEARANCE, URINE HAZY (CLEAR); BACTERIA, URINE AUTO 2+ (NEGATIVE); BILIRUBIN, URINE AUTO NEGATIVE (NEGATIVE); BLOOD, URINE BLOOD 2+ (NEGATIVE); COLOR, URINE YELLOW (YELLOW); GLUCOSE, URINE (UA) AUTO NEGATIVE (NEGATIVE); KETONE, URINE AUTO NEGATIVE (NEGATIVE); LEUKOCYTE ESTERASE, URINE AUTO 3+ (NEGATIVE); MUCUS, URINE SMALL (NEGATIVE); NITRITE, URINE AUTO POSITIVE (NEGATIVE); PROTEIN, URINE AUTO 1+ mg/dL (NEGATIVE); RBC, URINE AUTO 3 /HPF (0-3); SPECIFIC GRAVITY URINE AUTO 1.003 (1.002-1.035); SQUAMOUS EPITHELIAL CELL UR AU 1 /HPF (0-6); UROBILINOGEN, URINE AUTO 0.2 mg/dL (0.0-2.0); WBC, URINE AUTO 61 /HPF (0-3)
== END ==
LOC: M SMT 13:02
PROVIDERS: ATTEND Urology
DX: N39.0 Urinary tract infection, site not specified (principal)